=== PATIENT | male | born 1940 | race Two or more races ===

== ENCOUNTER 2021-06-06 10:42 | Inpatient (IN) | payer OTHER ==
[2021-06-06] VITALS (7 sets, daily range): BP systolic 118–136; BP diastolic 51–74
[~2021-06-06] VITALS: Ht 185.4 cm; Wt 95.2 kg
[2021-06-06] MEDS ORDERED: MAGNESIUM SULFATE 1GM/100ML 100 ML IV ONE (11:00)
[2021-06-06] MEDS ORDERED: IPRATROPIUM BROM 0.5 MG/2.5ML INH SOL NEB ONE (11:00)
[2021-06-06] MEDS ORDERED: ALBUTEROL SULF 2.5 MG/0.5ML(0.5%) NEB SOLN NEB ONE (11:00)
[2021-06-06] MEDS ORDERED: methylPREDNISolone SOD SUCC 125 MG/2 ML VL IV ONE (11:00)
[2021-06-06] MEDS ORDERED: AMIODARONE HCL 150 MG in D5W 5% 100 ML IV ONE (11:30)
[2021-06-06 11:44] LABS: Hematocrit 41.3 % (41.0-53.0); Hemoglobin 14.3 g/dL (13.5-17.5); Mean Corpuscular Hemoglobin 30.6 pg (28.0-32.0); Mean Corpuscular Hgb Conc. 34.6 g/dL (32.0-36.0); Mean Corpuscular Volume 88.4 fL (80.0-100.0); Red Blood Cells 4.67 10^6/uL (4.5-5.90); Red Cell Distribution Width 15.6 % (11.8-14.3); White Blood Cell 9.9 10^3/uL (4.4-10.8)
[2021-06-06] MEDS ORDERED: AMIODARONE 450mg/250ml AE 250 ML IV SCH (11:45)
[2021-06-06 11:56] LABS: Albumin 2.1 g/dL (3.4-5.0); Anion Gap 10 (5-15); Blood Urea Nitrogen 27 mg/dL (7-18); Calcium 8.4 mg/dL (8.5-10.1); Carbon Dioxide 22 mmol/L (21-32); Chloride 105 mmol/L (98-107); Glucose 114 mg/dL (74-106); Magnesium 2.2 mg/dL (1.6-2.6); Potassium 3.4 mmol/L (3.5-5.1); Sodium 137 mmol/L (136-145)
[2021-06-06 11:58] LABS: Lactic Acid w/Reflex 2.5 mmol/L (0.4-2.0)
[2021-06-06 11:59] LABS: Basophils % (manual) 0 (0.0-2.0); Blast Cells 0; Eosinophils % (manual) 0 (0-7); Metamyelocytes % 0; Myelocytes % 0; Promyelocytes % 0; Reactive Lymphocytes 0
[2021-06-06 12:06] LABS: Alanine Aminotransferase 56 U/L (16-61); Alkaline Phosphatase 127 U/L (45-117); Aspartate Aminotransferase 92 U/L (15-37); Bilirubin, Total 0.8 mg/dL (0.2-1.0); GFR African American 58 mL/min; GFR Non-African American 48 mL/min; Total Protein 6.7 g/dL (6.4-8.2)
[2021-06-06 13:00] LABS: Band Neutrophils % (manual) 12; Lymphocytes % (manual) 13 (10.0-50.0); Monocytes % (manual) 3 (0-12)
[2021-06-06] MEDS ORDERED: REMDESIVIR PER PHARMACY 0 ML IV SCH (14:00)
[2021-06-06] MEDS ORDERED: DIGOXIN 0.25 MG TAB PO ONE (14:45)
[2021-06-06] MEDS ORDERED: DIGOXIN (250MCG/ML) 2 ML AMPULE ONE (14:57)
[2021-06-06] MEDS ORDERED: AZITHROMYCIN 500MG/ 250ML 250 ML IV ONE (15:00)
[2021-06-06] MEDS ORDERED: cefTRIAXone 1GM/50ML D5W 50 ML IV ONE (15:00)
[2021-06-06] MEDS ORDERED: REMDESIVIR 200 MG in NS 210ml LOADING DOSE ADULT IV ONE (15:00)
[2021-06-06] MEDS ORDERED: DIGOXIN (250MCG/ML) 2 ML AMPULE IV ONE ×2 (15:00→15:30)
[2021-06-06] MEDS ORDERED: MORPHINE SULFATE INJECTION 2 MG/ML SYRG IV PRN (15:15)
[2021-06-06] MEDS ORDERED: NITROGLYCERIN 0.4 MG SL TAB SL PRN (15:15)
[2021-06-06] MEDS ORDERED: ACETAMINOPHEN 500 MG TAB PO PRN (15:45)
[2021-06-06] MEDS ORDERED: LACTULOSE 20Gm/30ML SOLN PO PRN (15:45)
[2021-06-06] MEDS ORDERED: ENOXAPARIN SOD 80 MG/0.8ML SYRINGE SC ONE (15:45)
[2021-06-06] MEDS ORDERED: ONDANSETRON HCL 4 MG/2 ML VIAL IV PRN (15:45)
[2021-06-06] MEDS ORDERED: diphenhdrAMINE HCL 50 MG/1 ML VL IV PRN (15:45)
[2021-06-06] MEDS ORDERED: AMIODARONE 450mg/250ml AE 250 ML IV ONE (20:52)
[2021-06-06] MEDS: ATORVASTATIN 20 MG TAB PO SCH (21:37)
[2021-06-06] MEDS: FLORASTOR (S. BOULARDII) 250 MG CAP PO SCH (21:37)
[2021-06-06] MEDS: ENOXAPARIN SOD 80 MG/0.8ML SYRINGE SC SCH (21:37)
[2021-06-06] MEDS ORDERED: CARVEDILOL 3.125 MG TAB PO SCH (22:00)
[2021-06-07 07:56] LABS: Basophils # (auto) 0 10 ^3/uL (0-0.2); Basophils % (auto) 0.1 % (0.0-2.0); Eosinophils # (auto) 0 10 ^3/uL (0-0.8); Hematocrit 37.5 % (41.0-53.0); Lymphocytes # (auto) 0.5 10 ^3/uL (0.4-5.4); Lymphocytes % (auto) 5.9 % (10.0-50.0); Mean Corpuscular Hemoglobin 30.6 pg (28.0-32.0); Mean Corpuscular Hgb Conc. 34.7 g/dL (32.0-36.0); Monocytes # (auto) 0.3 10 ^3/uL (0-1.3); Monocytes % (auto) 3.3 % (0.0-12.0); Neutrophils # (auto) 7.7 10 ^3/uL (1.6-8.6); Neutrophils % (auto) 90.7 % (37.0-80.0); Nucleated Red Blood Cells % 0.1 %; Red Blood Cells 4.26 10^6/uL (4.5-5.90); Red Cell Distribution Width 15.4 % (11.8-14.3); White Blood Cell 8.5 10^3/uL (4.4-10.8)
[2021-06-07 08:20] LABS: Albumin 1.8 g/dL (3.4-5.0); BUN/Creatinine Ratio 22.2; Potassium 3.4 mmol/L (3.5-5.1)
[2021-06-07 08:24] LABS: Bilirubin, Total 0.6 mg/dL (0.2-1.0); Total Protein 6.2 g/dL (6.4-8.2)
[2021-06-07] MEDS ORDERED: DIGOXIN (250MCG/ML) 2 ML AMPULE IV ONE (08:45)
[2021-06-07] MEDS ORDERED: POTASSIUM EFFERVESENT TAB 25 MEQ PO ONE (08:45)
[2021-06-07] MEDS: cefTRIAXone 1GM/50ML D5W 50 ML IV SCH (09:22)
[2021-06-07 09:26] LABS: Cholesterol 81 mg/dL (< 200); HDL Cholesterol 33 mg/dL (40-59); LDL Cholesterol 41 mg/dL (< 100); Triglycerides 82 mg/dL (< 150)
[2021-06-07] MEDS: FUROSEMIDE 40 MG/4 ML VIAL IV SCH (09:34)
[2021-06-07] MEDS: ASPirin 81 mg TAB PO SCH (09:35)
[2021-06-07] MEDS: ZINC SULFATE 220mg CAP or TAB PO SCH (09:35)
[2021-06-07] MEDS: FLORASTOR (S. BOULARDII) 250 MG CAP PO SCH ×2 (09:36→20:42)
[2021-06-07] MEDS: IVERMECTIN 3 MG TAB PO SCH (09:37)
[2021-06-07] MEDS: POTASSIUM CHL 20 Meq TABLET PO SCH (09:37)
[2021-06-07] MEDS: ENALAPRIL MALEATE 2.5 MG TAB PO SCH (09:38)
[2021-06-07] MEDS: ASCORBIC ACID 1,000 MG TAB PO SCH (09:39)
[2021-06-07] MEDS: CHOLECALCIFEROL (VITD3) 2,000 UNIT CAP/TAB PO SCH (09:39)
[2021-06-07] MEDS: ENOXAPARIN SOD 80 MG/0.8ML SYRINGE SC SCH ×2 (09:39→20:44)
[2021-06-07] MEDS: DexAMETHasone SOD PHOS 10MG/1ML VIAL INJ IV SCH (09:41)
[2021-06-07] MEDS ORDERED: AZITHROMYCIN 500MG/ 250ML 250 ML IV SCH (10:00)
[2021-06-07] MEDS ORDERED: METOPROLOL TARTRATE 25 MG TAB PO SCH (10:00)
[2021-06-07] MEDS ORDERED: ENOXAPARIN SOD 40 MG/0.4 ML SYRINGE SC SCH (10:00)
[2021-06-07] MEDS: BUDESONIDE (INHALATION) 180 MCG IH IN SCH ×2 (11:30→20:19)
[2021-06-07] MEDS: ALBUTEROL SULF HFA 90MCG INH 200DOSE IN PRN ×2 (11:30→20:19)
[2021-06-07] MEDS ORDERED: ATOR-47 PO (11:40)
[2021-06-07] MEDS ORDERED: ASPI81CH59 PO (11:40)
[2021-06-07] MEDS ORDERED: POTA10TA51 PO (11:40)
[2021-06-07] MEDS ORDERED: MONT10TA42 PO (11:40)
[2021-06-07] MEDS ORDERED: FURO40TA4 PO (11:40)
[2021-06-07] MEDS ORDERED: ALBUAER3 IN (11:40)
[2021-06-07] MEDS ORDERED: LORA-622 PO (11:40)
[2021-06-07] MEDS ORDERED: FLUT50SP (11:46)
[2021-06-07] MEDS ORDERED: APIX5TAB PO (11:46)
[2021-06-07] MEDS ORDERED: METO-159 PO (11:46)
[2021-06-07] MEDS ORDERED: TAMS0.4C36 PO (11:46)
[2021-06-07] MEDS ORDERED: FINA5TAB4 PO (11:46)
[2021-06-07] MEDS ORDERED: FLUT500M2 IN (11:46)
[2021-06-07] MEDS ORDERED: ALLO300T2 PO (11:46)
[2021-06-07] MEDS ORDERED: QUET25TA46 PO (11:56)
[2021-06-07] MEDS: AMIODARONE 450mg/250ml AE 250 ML IV SCH (13:09)
[2021-06-07] MEDS ORDERED: METOPROLOL TARTRATE 25 MG TAB PO ONE (13:15)
[2021-06-07] MEDS: REMDESIVIR 100mg 100 MG in SODIUM CHL 0.9% 230 ML IV SCH (15:10)
[2021-06-07 18:40] LABS: Urine Amorphous Crystal FEW /hpf (None Seen); Urine Bacteria NONE SEEN /hpf (None Seen); Urine Blood 3+ /uL (Negative); Urine Hyaline Cast MOD /lpf (0 - 2); Urine Mucus FEW (None Seen); Urine Specific Gravity 1.022 (1.001-1.035); Urine WBC 40 /hpf (0 - 3)
[2021-06-07] MEDS: LINEZOLID 600MG/300ML 300 ML IV SCH (20:42)
[2021-06-07] MEDS: ATORVASTATIN 20 MG TAB PO SCH (20:43)
[2021-06-07] MEDS: METOPROLOL TARTRATE 25 MG TAB PO SCH (20:43)
[2021-06-08] MEDS: AMIODARONE 450mg/250ml AE 250 ML IV SCH (03:49)
[2021-06-08] MEDS: ALBUTEROL SULF HFA 90MCG INH 200DOSE IN PRN (06:07)
[2021-06-08 06:57] LABS: Potassium 3.9 mmol/L (3.5-5.1)
[2021-06-08 07:24] LABS: Albumin 1.8 g/dL (3.4-5.0); Bilirubin, Total 0.8 mg/dL (0.2-1.0); Calcium 8.4 mg/dL (8.5-10.1); Total Protein 6.5 g/dL (6.4-8.2)
[2021-06-08] MEDS: cefTRIAXone 1GM/50ML D5W 50 ML IV SCH (09:48)
[2021-06-08] MEDS: ASPirin 81 mg TAB PO SCH (10:06)
[2021-06-08] MEDS: DexAMETHasone SOD PHOS 10MG/1ML VIAL INJ IV SCH (10:06)
[2021-06-08] MEDS: POTASSIUM CHL 20 Meq TABLET PO SCH (10:07)
[2021-06-08] MEDS: FLORASTOR (S. BOULARDII) 250 MG CAP PO SCH ×2 (10:07→22:16)
[2021-06-08] MEDS: IVERMECTIN 3 MG TAB PO SCH (10:08)
[2021-06-08] MEDS: ASCORBIC ACID 1,000 MG TAB PO SCH (10:08)
[2021-06-08] MEDS: CHOLECALCIFEROL (VITD3) 2,000 UNIT CAP/TAB PO SCH (10:09)
[2021-06-08] MEDS: ENOXAPARIN SOD 80 MG/0.8ML SYRINGE SC SCH (10:09)
[2021-06-08] MEDS: DIGOXIN 0.125 MG TAB PO SCH (10:15)
[2021-06-08] MEDS: FUROSEMIDE 40 MG/4 ML VIAL IV SCH (10:15)
[2021-06-08] MEDS: ZINC SULFATE 220mg CAP or TAB PO SCH (10:15)
[2021-06-08] MEDS: ENALAPRIL MALEATE 2.5 MG TAB PO SCH (10:16)
[2021-06-08] MEDS: METOPROLOL TARTRATE 25 MG TAB PO SCH ×3 (10:16→23:16)
[2021-06-08] MEDS: LINEZOLID 600MG/300ML 300 ML IV SCH ×2 (10:37→22:09)
[2021-06-08 11:42] LABS: Hematocrit 37.8 % (41.0-53.0); Hemoglobin 13.1 g/dL (13.5-17.5)
[2021-06-08] MEDS ORDERED: MORPHINE SULFATE INJECTION 2 MG/ML SYRG IV PRN (14:15)
[2021-06-08] MEDS ORDERED: NITROGLYCERIN 0.4 MG SL TAB SL PRN (14:15)
[2021-06-08] MEDS: REMDESIVIR 100mg 100 MG in SODIUM CHL 0.9% 230 ML IV SCH (15:00)
[2021-06-08 19:00] LABS: Hematocrit 38.4 % (41.0-53.0); Hemoglobin 13.3 g/dL (13.5-17.5)
[2021-06-08] MEDS: HYDROCORTISONE ACET 25 MG RECTAL SUPP PR SCH ×2 (22:00→22:36)
[2021-06-08] MEDS ORDERED: ENOXAPARIN SOD 100 MG/1 ML SYRINGE SC SCH (22:00)
[2021-06-08] MEDS: ATORVASTATIN 20 MG TAB PO SCH (22:16)
[2021-06-09 02:13] VITALS: BP 123/85
[2021-06-09 02:15] LABS: Hematocrit 37.8 % (41.0-53.0); Hemoglobin 13.2 g/dL (13.5-17.5)
[2021-06-09] MEDS: ALBUTEROL SULF HFA 90MCG INH 200DOSE IN PRN ×3 (02:49→19:16)
[2021-06-09] MEDS: BUDESONIDE (INHALATION) 180 MCG IH IN SCH (02:49)
[2021-06-09 05:00] VITALS: BP 134/88
[2021-06-09 05:25] LABS: Calcium 8.2 mg/dL (8.5-10.1)
[2021-06-09 05:28] LABS: BUN/Creatinine Ratio 28.3; Bilirubin, Total 0.9 mg/dL (0.2-1.0); Total Protein 6.7 g/dL (6.4-8.2)
[2021-06-09 09:20] VITALS: BP 127/85
[2021-06-09] MEDS: HYDROCORTISONE ACET 25 MG RECTAL SUPP PR SCH ×2 (10:00→21:58)
[2021-06-09] MEDS: ZINC SULFATE 220mg CAP or TAB PO SCH (10:34)
[2021-06-09] MEDS: cefTRIAXone 1GM/50ML D5W 50 ML IV SCH (10:34)
[2021-06-09] MEDS: FLORASTOR (S. BOULARDII) 250 MG CAP PO SCH ×2 (10:34→21:56)
[2021-06-09] MEDS: FUROSEMIDE 40 MG/4 ML VIAL IV SCH (10:34)
[2021-06-09] MEDS: DexAMETHasone SOD PHOS 10MG/1ML VIAL INJ IV SCH (10:34)
[2021-06-09] MEDS: IVERMECTIN 3 MG TAB PO SCH (10:35)
[2021-06-09] MEDS: ASCORBIC ACID 1,000 MG TAB PO SCH (10:35)
[2021-06-09] MEDS: DIGOXIN 0.125 MG TAB PO SCH (10:35)
[2021-06-09] MEDS: METOPROLOL TARTRATE 25 MG TAB PO SCH ×2 (10:35→21:58)
[2021-06-09] MEDS: CHOLECALCIFEROL (VITD3) 2,000 UNIT CAP/TAB PO SCH (10:36)
[2021-06-09] MEDS: LINEZOLID 600MG/300ML 300 ML IV SCH ×2 (11:29→21:56)
[2021-06-09 12:44] VITALS: BP 158/80
[2021-06-09] MEDS: REMDESIVIR 100mg 100 MG in SODIUM CHL 0.9% 230 ML IV SCH (16:31)
[2021-06-09 17:19] VITALS: BP 130/73
[2021-06-09] MEDS: ATORVASTATIN 20 MG TAB PO SCH (21:56)
[2021-06-09] MEDS: traMADol HCL 50 MG TAB PO PRN (21:57)
[2021-06-09 22:00] VITALS: BP 150/57
[2021-06-10 05:00] VITALS: BP 157/82
[2021-06-10 05:48] LABS: Albumin 1.9 g/dL (3.4-5.0); Calcium 8.1 mg/dL (8.5-10.1); Potassium 3.9 mmol/L (3.5-5.1)
[2021-06-10 05:54] LABS: BUN/Creatinine Ratio 29.3; Bilirubin, Total 0.8 mg/dL (0.2-1.0); Total Protein 6.2 g/dL (6.4-8.2)
[2021-06-10 05:59] LABS: Basophils # (auto) 0 10 ^3/uL (0-0.2); Basophils % (auto) 0.1 % (0.0-2.0); Eosinophils # (auto) 0 10 ^3/uL (0-0.8); Hematocrit 38.1 % (41.0-53.0); Hemoglobin 13.5 g/dL (13.5-17.5); Lymphocytes # (auto) 0.4 10 ^3/uL (0.4-5.4); Mean Corpuscular Hemoglobin 31.1 pg (28.0-32.0); Mean Corpuscular Hgb Conc. 35.6 g/dL (32.0-36.0); Mean Corpuscular Volume 87.4 fL (80.0-100.0); Monocytes # (auto) 0.5 10 ^3/uL (0-1.3); Monocytes % (auto) 4.8 % (0.0-12.0); Neutrophils # (auto) 9.1 10 ^3/uL (1.6-8.6); Neutrophils % (auto) 91.1 % (37.0-80.0); Nucleated Red Blood Cells % 0.1 %; Red Blood Cells 4.36 10^6/uL (4.5-5.90); Red Cell Distribution Width 15.3 % (11.8-14.3)
[2021-06-10 08:26] VITALS: BP 126/89
[2021-06-10] MEDS: ALBUTEROL SULF HFA 90MCG INH 200DOSE IN PRN ×2 (08:57→21:29)
[2021-06-10] MEDS: HYDROCORTISONE ACET 25 MG RECTAL SUPP PR SCH ×2 (10:00→20:45)
[2021-06-10 10:10] LABS: Hepatitis B Surface Antibody Negative
[2021-06-10] MEDS: DexAMETHasone SOD PHOS 10MG/1ML VIAL INJ IV SCH (10:20)
[2021-06-10] MEDS: ZINC SULFATE 220mg CAP or TAB PO SCH (10:20)
[2021-06-10] MEDS: FLORASTOR (S. BOULARDII) 250 MG CAP PO SCH ×2 (10:20→20:44)
[2021-06-10] MEDS: cefTRIAXone 1GM/50ML D5W 50 ML IV SCH (10:20)
[2021-06-10] MEDS: IVERMECTIN 3 MG TAB PO SCH (10:21)
[2021-06-10] MEDS: METOPROLOL TARTRATE 50 MG TAB PO SCH ×2 (10:21→20:45)
[2021-06-10] MEDS: ASCORBIC ACID 1,000 MG TAB PO SCH (10:21)
[2021-06-10] MEDS: CHOLECALCIFEROL (VITD3) 2,000 UNIT CAP/TAB PO SCH (10:21)
[2021-06-10] MEDS: DIGOXIN 0.125 MG TAB PO SCH (10:21)
[2021-06-10 10:45] LABS: Hepatitis A Total Antibody Negative
[2021-06-10] MEDS: LINEZOLID 600MG/300ML 300 ML IV SCH ×2 (11:11→20:44)
[2021-06-10 12:29] VITALS: BP 139/68
[2021-06-10 13:08] LABS: Hepatitis B Surface Antigen Negative (Negative)
[2021-06-10 13:09] LABS: Hepatitis B Core Total AB Negative; Hepatitis C Antibody Negative (Negative)
[2021-06-10] MEDS: REMDESIVIR 100mg 100 MG in SODIUM CHL 0.9% 230 ML IV SCH (15:42)
[2021-06-10 16:55] VITALS: BP 141/77
[2021-06-10] MEDS: ATORVASTATIN 20 MG TAB PO SCH (20:45)
[2021-06-10 22:00] VITALS: BP 130/73
[2021-06-10] MEDS: ENOXAPARIN SOD 100 MG/1 ML SYRINGE SC SCH (23:21)
[2021-06-11 05:00] VITALS: BP 151/75
[2021-06-11] MEDS: ALBUTEROL SULF HFA 90MCG INH 200DOSE IN PRN ×2 (06:09→22:14)
[2021-06-11] MEDS: traMADol HCL 50 MG TAB PO PRN (08:10)
[2021-06-11] MEDS: cefTRIAXone 1GM/50ML D5W 50 ML IV SCH (09:06)
[2021-06-11 09:12] VITALS: BP 146/68
[2021-06-11 10:23] LABS: Hematocrit 40.8 % (41.0-53.0)
[2021-06-11] MEDS: DexAMETHasone SOD PHOS 10MG/1ML VIAL INJ IV SCH (10:36)
[2021-06-11] MEDS: LINEZOLID 600MG/300ML 300 ML IV SCH (10:36)
[2021-06-11] MEDS: ASCORBIC ACID 1,000 MG TAB PO SCH (10:37)
[2021-06-11] MEDS: CHOLECALCIFEROL (VITD3) 2,000 UNIT CAP/TAB PO SCH (10:37)
[2021-06-11] MEDS: ZINC SULFATE 220mg CAP or TAB PO SCH (10:37)
[2021-06-11] MEDS: FLORASTOR (S. BOULARDII) 250 MG CAP PO SCH (10:37)
[2021-06-11] MEDS: IVERMECTIN 3 MG TAB PO SCH (10:37)
[2021-06-11] MEDS: METOPROLOL TARTRATE 50 MG TAB PO SCH ×2 (10:37→22:39)
[2021-06-11] MEDS: ENOXAPARIN SOD 100 MG/1 ML SYRINGE SC SCH (10:38)
[2021-06-11] MEDS: HYDROCORTISONE ACET 25 MG RECTAL SUPP PR SCH ×2 (10:38→22:30)
[2021-06-11 10:44] LABS: Calcium 8.2 mg/dL (8.5-10.1); Potassium 3.3 mmol/L (3.5-5.1)
[2021-06-11 10:46] LABS: BUN/Creatinine Ratio 27.8
[2021-06-11 13:00] VITALS: BP 158/98
[2021-06-11] MEDS ORDERED: DIGOXIN 0.125 MG TAB PO ONE (15:00)
[2021-06-11 17:00] VITALS: BP 151/86
[2021-06-11 22:00] VITALS: BP_SYST 140; BP_SYST 151; BP_DIAS 76; BP_DIAS 87
[2021-06-11] MEDS: ceFAZolin 1GM/50ML 50 ML IV SCH (22:29)
[2021-06-11] MEDS: APIXABAN 2.5 MG TAB PO SCH (22:30)
[2021-06-12] MEDS: traMADol HCL 50 MG TAB PO PRN ×3 (04:02→20:39)
[2021-06-12 05:00] VITALS: BP 148/55
[2021-06-12] MEDS: ceFAZolin 1GM/50ML 50 ML IV SCH ×3 (05:23→22:19)
[2021-06-12] MEDS: ALBUTEROL SULF HFA 90MCG INH 200DOSE IN PRN (06:17)
[2021-06-12 08:00] VITALS: BP 149/85
[2021-06-12 09:00] VITALS: BP 149/85
[2021-06-12] MEDS: ASCORBIC ACID 1,000 MG TAB PO SCH (10:00)
[2021-06-12] MEDS: HYDROCORTISONE ACET 25 MG RECTAL SUPP PR SCH ×2 (10:00→22:00)
[2021-06-12] MEDS: DexAMETHasone SOD PHOS 10MG/1ML VIAL INJ IV SCH (10:19)
[2021-06-12] MEDS: APIXABAN 2.5 MG TAB PO SCH ×2 (10:21→20:39)
[2021-06-12] MEDS: ZINC SULFATE 220mg CAP or TAB PO SCH (10:21)
[2021-06-12] MEDS: DIGOXIN 0.125 MG TAB PO SCH (10:22)
[2021-06-12] MEDS: CHOLECALCIFEROL (VITD3) 2,000 UNIT CAP/TAB PO SCH (10:22)
[2021-06-12] MEDS: METOPROLOL TARTRATE 50 MG TAB PO SCH ×2 (10:23→20:40)
[2021-06-12 13:00] VITALS: BP 137/83
[2021-06-12 22:00] VITALS: BP 150/67
[2021-06-12] MEDS: HALOPERIDOL LACTATE 5 MG/ML INJ VIAL IM PRN (22:20)
[2021-06-13 05:00] VITALS: BP 125/66
[2021-06-13] MEDS: ALBUTEROL SULF HFA 90MCG INH 200DOSE IN PRN (06:42)
[2021-06-13] MEDS: ceFAZolin 1GM/50ML 50 ML IV SCH ×3 (06:47→21:40)
[2021-06-13] MEDS: traMADol HCL 50 MG TAB PO PRN ×3 (07:51→21:41)
[2021-06-13 08:31] VITALS: BP 138/72
[2021-06-13] MEDS: DexAMETHasone SOD PHOS 10MG/1ML VIAL INJ IV SCH (10:04)
[2021-06-13] MEDS: CHOLECALCIFEROL (VITD3) 2,000 UNIT CAP/TAB PO SCH (10:05)
[2021-06-13] MEDS: APIXABAN 2.5 MG TAB PO SCH ×2 (10:05→21:40)
[2021-06-13] MEDS: ZINC SULFATE 220mg CAP or TAB PO SCH (10:05)
[2021-06-13] MEDS: DIGOXIN 0.125 MG TAB PO SCH (10:05)
[2021-06-13] MEDS: ASCORBIC ACID 1,000 MG TAB PO SCH (10:06)
[2021-06-13] MEDS: METOPROLOL TARTRATE 50 MG TAB PO SCH ×2 (10:07→21:58)
[2021-06-13] MEDS: HYDROCORTISONE ACET 25 MG RECTAL SUPP PR SCH ×2 (11:11→21:40)
[2021-06-13 11:51] LABS: Basophils # (auto) 0 10 ^3/uL (0-0.2); Basophils % (auto) 0.2 % (0.0-2.0); Eosinophils # (auto) 0 10 ^3/uL (0-0.8); Eosinophils % (auto) 0.3 % (0.0-7.0); Hemoglobin 13.8 g/dL (13.5-17.5); Lymphocytes # (auto) 0.3 10 ^3/uL (0.4-5.4); Lymphocytes % (auto) 2.3 % (10.0-50.0); Mean Corpuscular Hemoglobin 29.3 pg (28.0-32.0); Mean Corpuscular Hgb Conc. 33.6 g/dL (32.0-36.0); Mean Corpuscular Volume 87.3 fL (80.0-100.0); Monocytes # (auto) 0.5 10 ^3/uL (0-1.3); Monocytes % (auto) 3.5 % (0.0-12.0); Neutrophils # (auto) 12.8 10 ^3/uL (1.6-8.6); Neutrophils % (auto) 93.7 % (37.0-80.0); Nucleated Red Blood Cells % 0.1 %; Red Cell Distribution Width 15.2 % (11.8-14.3); White Blood Cell 13.6 10^3/uL (4.4-10.8)
[2021-06-13 12:03] LABS: Albumin 2.1 g/dL (3.4-5.0); Potassium 3.6 mmol/L (3.5-5.1)
[2021-06-13 12:26] LABS: BUN/Creatinine Ratio 26.1; Total Protein 6.4 g/dL (6.4-8.2)
[2021-06-13 13:00] VITALS: BP 122/43
[2021-06-13 13:05] VITALS: BP 122/43
[2021-06-13 17:01] VITALS: BP 160/76
[2021-06-14 05:00] VITALS: BP 148/80
[2021-06-14] MEDS: traMADol HCL 50 MG TAB PO PRN ×3 (05:07→20:55)
[2021-06-14] MEDS: ceFAZolin 1GM/50ML 50 ML IV SCH ×3 (05:17→20:54)
[2021-06-14 05:57] LABS: Basophils # (auto) 0 10 ^3/uL (0-0.2); Basophils % (auto) 0.1 % (0.0-2.0); Eosinophils # (auto) 0 10 ^3/uL (0-0.8); Eosinophils % (auto) 0.3 % (0.0-7.0); Hemoglobin 13.5 g/dL (13.5-17.5); Lymphocytes # (auto) 0.6 10 ^3/uL (0.4-5.4); Lymphocytes % (auto) 6.9 % (10.0-50.0); Mean Corpuscular Hemoglobin 31.1 pg (28.0-32.0); Mean Corpuscular Hgb Conc. 35.4 g/dL (32.0-36.0); Mean Corpuscular Volume 87.9 fL (80.0-100.0); Monocytes # (auto) 0.5 10 ^3/uL (0-1.3); Monocytes % (auto) 5.8 % (0.0-12.0); Neutrophils # (auto) 7.9 10 ^3/uL (1.6-8.6); Neutrophils % (auto) 86.9 % (37.0-80.0); Red Blood Cells 4.32 10^6/uL (4.5-5.90); Red Cell Distribution Width 15.3 % (11.8-14.3); White Blood Cell 9.1 10^3/uL (4.4-10.8)
[2021-06-14 06:34] LABS: Calcium 8.2 mg/dL (8.5-10.1); Magnesium 2.8 mg/dL (1.6-2.6); Potassium 3.8 mmol/L (3.5-5.1)
[2021-06-14 06:36] LABS: BUN/Creatinine Ratio 29.1
[2021-06-14 06:39] LABS: Total Protein 6.2 g/dL (6.4-8.2)
[2021-06-14] MEDS: HALOPERIDOL LACTATE 5 MG/ML INJ VIAL IM PRN (06:48)
[2021-06-14 09:06] VITALS: BP 167/77
[2021-06-14] MEDS: APIXABAN 2.5 MG TAB PO SCH ×2 (09:36→20:55)
[2021-06-14] MEDS: DIGOXIN 0.125 MG TAB PO SCH (09:36)
[2021-06-14] MEDS: ZINC SULFATE 220mg CAP or TAB PO SCH (09:36)
[2021-06-14] MEDS: DexAMETHasone SOD PHOS 10MG/1ML VIAL INJ IV SCH (09:36)
[2021-06-14] MEDS: CHOLECALCIFEROL (VITD3) 2,000 UNIT CAP/TAB PO SCH (09:37)
[2021-06-14] MEDS: ASCORBIC ACID 1,000 MG TAB PO SCH (09:37)
[2021-06-14] MEDS: METOPROLOL TARTRATE 50 MG TAB PO SCH ×3 (09:37→21:01)
[2021-06-14] MEDS: HYDROCORTISONE ACET 25 MG RECTAL SUPP PR SCH ×2 (09:38→20:55)
[2021-06-14] MEDS ORDERED: FUROSEMIDE 40 MG/4 ML VIAL IV ONE (14:15)
[2021-06-14 17:00] VITALS: BP 157/103
[2021-06-14 18:30] VITALS: BP 154/98
[2021-06-14] MEDS: FUROSEMIDE 40 MG/4 ML VIAL IV SCH (18:30)
[2021-06-14 18:35] LABS: Basophils # (auto) 0 10 ^3/uL (0-0.2); Eosinophils # (auto) 0 10 ^3/uL (0-0.8); Eosinophils % (auto) 0.1 % (0.0-7.0); Hematocrit 40.2 % (41.0-53.0); Hemoglobin 13.6 g/dL (13.5-17.5); Lymphocytes # (auto) 0.4 10 ^3/uL (0.4-5.4); Lymphocytes % (auto) 3.7 % (10.0-50.0); Mean Corpuscular Hemoglobin 29.6 pg (28.0-32.0); Mean Corpuscular Hgb Conc. 33.8 g/dL (32.0-36.0); Mean Corpuscular Volume 87.5 fL (80.0-100.0); Monocytes # (auto) 0.5 10 ^3/uL (0-1.3); Monocytes % (auto) 4.5 % (0.0-12.0); Neutrophils # (auto) 9.4 10 ^3/uL (1.6-8.6); Neutrophils % (auto) 91.7 % (37.0-80.0); Red Blood Cells 4.59 10^6/uL (4.5-5.90); Red Cell Distribution Width 15.4 % (11.8-14.3); White Blood Cell 10.2 10^3/uL (4.4-10.8)
[2021-06-14] MEDS ORDERED: hydrALAZINE HCL 20 MG/ML VL IV PRN (19:15)
[2021-06-14] MEDS: ALBUTEROL SULF HFA 90MCG INH 200DOSE IN PRN (20:09)
[2021-06-14 22:00] VITALS: BP_SYST 131; BP_SYST 137; BP_DIAS 57; BP_DIAS 80
[2021-06-15] MEDS: traMADol HCL 50 MG TAB PO PRN (03:01)
[2021-06-15] MEDS: HALOPERIDOL LACTATE 5 MG/ML INJ VIAL IM PRN (04:01)
[2021-06-15] MEDS ORDERED: LORazepam 2MG/ML-1ML VIAL IV ONE (04:45)
[2021-06-15] MEDS: FUROSEMIDE 40 MG/4 ML VIAL IV SCH ×2 (06:00→18:00)
[2021-06-15] MEDS: ceFAZolin 1GM/50ML 50 ML IV SCH ×3 (06:00→22:09)
[2021-06-15] MEDS: ALBUTEROL SULF HFA 90MCG INH 200DOSE IN PRN ×2 (06:15→21:20)
[2021-06-15 09:00] VITALS: BP 143/76
[2021-06-15] MEDS: DexAMETHasone SOD PHOS 10MG/1ML VIAL INJ IV SCH (09:41)
[2021-06-15] MEDS: ZINC SULFATE 220mg CAP or TAB PO SCH (09:42)
[2021-06-15] MEDS: ASCORBIC ACID 1,000 MG TAB PO SCH (09:42)
[2021-06-15] MEDS: APIXABAN 2.5 MG TAB PO SCH ×2 (09:42→22:09)
[2021-06-15] MEDS: CHOLECALCIFEROL (VITD3) 2,000 UNIT CAP/TAB PO SCH (09:42)
[2021-06-15] MEDS: METOPROLOL TARTRATE 50 MG TAB PO SCH ×2 (09:44→22:21)
[2021-06-15] MEDS: DIGOXIN 0.125 MG TAB PO SCH (09:45)
[2021-06-15] MEDS: HYDROCORTISONE ACET 25 MG RECTAL SUPP PR SCH ×2 (09:52→22:09)
[2021-06-15] MEDS ORDERED: HALOPERIDOL LACTATE 5 MG/ML INJ VIAL IM ONE (11:00)
[2021-06-15] MEDS ORDERED: HALOPERIDOL LACTATE 5 MG/ML INJ VIAL IM PRN (11:15)
[2021-06-15 12:58] VITALS: BP 143/84
[2021-06-15 22:00] VITALS: BP 137/98
[2021-06-16 05:00] VITALS: BP 151/81
[2021-06-16] MEDS: ceFAZolin 1GM/50ML 50 ML IV SCH (06:03)
[2021-06-16] MEDS: FUROSEMIDE 40 MG/4 ML VIAL IV SCH (06:03)
[2021-06-16] MEDS: ALBUTEROL SULF HFA 90MCG INH 200DOSE IN PRN (06:17)
[2021-06-16] MEDS: ALBUTEROL SULF HFA 90MCG INH 200DOSE IN SCH ×2 (07:55→21:29)
[2021-06-16] MEDS ORDERED: DexAMETHasone SOD PHOS 10MG/1ML VIAL INJ IV SCH (10:00)
[2021-06-16] MEDS ORDERED: HALOPERIDOL LACTATE 5 MG/ML INJ VIAL IM PRN (12:15)
[2021-06-16] MEDS: CHOLECALCIFEROL (VITD3) 2,000 UNIT CAP/TAB PO SCH (12:33)
[2021-06-16] MEDS: DIGOXIN 0.125 MG TAB PO SCH (12:33)
[2021-06-16] MEDS: APIXABAN 2.5 MG TAB PO SCH ×2 (12:33→20:57)
[2021-06-16] MEDS: HYDROCORTISONE ACET 25 MG RECTAL SUPP PR SCH ×2 (12:45→20:57)
[2021-06-16] MEDS: METOPROLOL TARTRATE 50 MG TAB PO SCH ×2 (12:45→20:57)
[2021-06-16] MEDS: FUROSEMIDE 20 MG/2 ML VIAL IV SCH (18:50)
[2021-06-16] MEDS: traMADol HCL 50 MG TAB PO PRN (20:57)
[2021-06-16] MEDS: BUDESONIDE (INHALATION) 0.5 MG/2 ML NEB NEB SCH (21:26)
[2021-06-16 22:00] VITALS: BP 129/75
[2021-06-17 05:00] VITALS: BP 144/87
[2021-06-17] MEDS: FUROSEMIDE 20 MG/2 ML VIAL IV SCH ×2 (06:13→18:18)
[2021-06-17] MEDS: traMADol HCL 50 MG TAB PO PRN (06:14)
[2021-06-17] MEDS: ALBUTEROL SULF HFA 90MCG INH 200DOSE IN SCH ×3 (08:00→19:22)
[2021-06-17 09:00] VITALS: BP 136/82
[2021-06-17] MEDS: BUDESONIDE (INHALATION) 0.5 MG/2 ML NEB NEB SCH ×2 (10:00→19:24)
[2021-06-17] MEDS: DIGOXIN 0.125 MG TAB PO SCH (10:05)
[2021-06-17] MEDS: APIXABAN 2.5 MG TAB PO SCH ×2 (10:05→22:13)
[2021-06-17] MEDS: levoFLOXacin 500 MG TAB PO SCH (10:06)
[2021-06-17] MEDS: HYDROCORTISONE ACET 25 MG RECTAL SUPP PR SCH (10:06)
[2021-06-17] MEDS: CHOLECALCIFEROL (VITD3) 2,000 UNIT CAP/TAB PO SCH (10:06)
[2021-06-17] MEDS: METOPROLOL TARTRATE 50 MG TAB PO SCH ×2 (10:06→22:14)
[2021-06-17 17:00] VITALS: BP 128/80
[2021-06-17 22:00] VITALS: BP 126/81
[2021-06-18 05:00] VITALS: BP 140/106
[2021-06-18 06:43] LABS: Potassium 3.5 mmol/L (3.5-5.1)
[2021-06-18] MEDS: ALBUTEROL SULF HFA 90MCG INH 200DOSE IN SCH ×2 (06:47→14:00)
[2021-06-18 06:51] LABS: Basophils # (auto) 0 10 ^3/uL (0-0.2); Basophils % (auto) 0.1 % (0.0-2.0); Eosinophils # (auto) 0.3 10 ^3/uL (0-0.8); Eosinophils % (auto) 1.9 % (0.0-7.0); Hematocrit 41.7 % (41.0-53.0); Hemoglobin 14.4 g/dL (13.5-17.5); Lymphocytes # (auto) 1.1 10 ^3/uL (0.4-5.4); Lymphocytes % (auto) 7.6 % (10.0-50.0); Mean Corpuscular Hemoglobin 30.6 pg (28.0-32.0); Mean Corpuscular Hgb Conc. 34.6 g/dL (32.0-36.0); Mean Corpuscular Volume 88.5 fL (80.0-100.0); Monocytes # (auto) 1.1 10 ^3/uL (0-1.3); Monocytes % (auto) 7.7 % (0.0-12.0); Neutrophils # (auto) 11.7 10 ^3/uL (1.6-8.6); Neutrophils % (auto) 82.7 % (37.0-80.0); Nucleated Red Blood Cells % 0.1 %; Red Blood Cells 4.72 10^6/uL (4.5-5.90); Red Cell Distribution Width 15.6 % (11.8-14.3); White Blood Cell 14.2 10^3/uL (4.4-10.8)
[2021-06-18] MEDS: FUROSEMIDE 20 MG/2 ML VIAL IV SCH ×2 (06:56→18:14)
[2021-06-18 07:01] LABS: Albumin 2.1 g/dL (3.4-5.0); Bilirubin, Total 1.4 mg/dL (0.2-1.0); CRP High Sensitivity 2.33 mg/dL (< 0.3); Calcium 8.4 mg/dL (8.5-10.1); Total Protein 6.6 g/dL (6.4-8.2)
[2021-06-18] MEDS: DexAMETHasone SOD PHOS 10MG/1ML VIAL INJ IV SCH (09:58)
[2021-06-18] MEDS: APIXABAN 2.5 MG TAB PO SCH ×2 (09:58→22:15)
[2021-06-18] MEDS: levoFLOXacin 500 MG TAB PO SCH (09:59)
[2021-06-18] MEDS: DIGOXIN 0.125 MG TAB PO SCH (09:59)
[2021-06-18] MEDS: BUDESONIDE (INHALATION) 0.5 MG/2 ML NEB NEB SCH (10:00)
[2021-06-18] MEDS: CHOLECALCIFEROL (VITD3) 2,000 UNIT CAP/TAB PO SCH (10:03)
[2021-06-18] MEDS: METOPROLOL TARTRATE 50 MG TAB PO SCH ×2 (10:03→22:15)
[2021-06-18] MEDS: traMADol HCL 50 MG TAB PO PRN (10:05)
[2021-06-18] MEDS: HYDROcodone-ACET 5/325MG TAB PO PRN (13:19)
[2021-06-18 22:00] VITALS: BP 132/79
[2021-06-19 05:00] VITALS: BP 144/78
[2021-06-19] MEDS: FUROSEMIDE 20 MG/2 ML VIAL IV SCH ×2 (05:59→18:10)
[2021-06-19] MEDS: BUDESONIDE (INHALATION) 0.5 MG/2 ML NEB NEB SCH ×3 (06:04→22:00)
[2021-06-19] MEDS: ALBUTEROL SULF HFA 90MCG INH 200DOSE IN SCH ×3 (06:04→22:00)
[2021-06-19 07:19] LABS: Potassium 3.9 mmol/L (3.5-5.1)
[2021-06-19 07:24] LABS: BUN/Creatinine Ratio 29.4; Calcium 8.7 mg/dL (8.5-10.1)
[2021-06-19 07:32] LABS: Basophils # (auto) 0 10 ^3/uL (0-0.2); Basophils % (auto) 0.1 % (0.0-2.0); Eosinophils # (auto) 0 10 ^3/uL (0-0.8); Hematocrit 44.9 % (41.0-53.0); Hemoglobin 15.2 g/dL (13.5-17.5); Lymphocytes # (auto) 0.7 10 ^3/uL (0.4-5.4); Lymphocytes % (auto) 5.8 % (10.0-50.0); Mean Corpuscular Hgb Conc. 33.8 g/dL (32.0-36.0); Mean Corpuscular Volume 88.9 fL (80.0-100.0); Monocytes # (auto) 0.9 10 ^3/uL (0-1.3); Monocytes % (auto) 7.4 % (0.0-12.0); Neutrophils # (auto) 10.8 10 ^3/uL (1.6-8.6); Neutrophils % (auto) 86.7 % (37.0-80.0); Nucleated Red Blood Cells % 0.2 %; Red Blood Cells 5.05 10^6/uL (4.5-5.90); Red Cell Distribution Width 15.5 % (11.8-14.3); White Blood Cell 12.5 10^3/uL (4.4-10.8)
[2021-06-19 07:46] LABS: INR 1.22 (0.9-1.15); Partial Thromboplastin Time 28.2 sec (23.6-33.0)
[2021-06-19 09:00] VITALS: BP 106/83
[2021-06-19] MEDS: DexAMETHasone SOD PHOS 10MG/1ML VIAL INJ IV SCH (12:24)
[2021-06-19] MEDS: APIXABAN 2.5 MG TAB PO SCH ×2 (12:24→22:14)
[2021-06-19] MEDS: levoFLOXacin 500 MG TAB PO SCH (12:25)
[2021-06-19] MEDS: CHOLECALCIFEROL (VITD3) 2,000 UNIT CAP/TAB PO SCH (12:25)
[2021-06-19] MEDS: DIGOXIN 0.125 MG TAB PO SCH (12:25)
[2021-06-19] MEDS: HYDROcodone-ACET 5/325MG TAB PO PRN (12:38)
[2021-06-19 13:00] VITALS: BP 126/72
[2021-06-19] MEDS: METOPROLOL TARTRATE 50 MG TAB PO SCH ×2 (13:11→22:14)
[2021-06-19] MEDS: traMADol HCL 50 MG TAB PO PRN (16:02)
[2021-06-19 17:00] VITALS: BP 125/67
[2021-06-19 22:00] VITALS: BP 131/61
[2021-06-20] MEDS: ALBUTEROL SULF HFA 90MCG INH 200DOSE IN SCH ×2 (01:47→21:16)
[2021-06-20 05:20] VITALS: BP 134/73
[2021-06-20] MEDS: FUROSEMIDE 20 MG/2 ML VIAL IV SCH ×2 (06:25→17:57)
[2021-06-20 08:15] VITALS: BP 117/54
[2021-06-20 09:00] VITALS: BP 117/54
[2021-06-20] MEDS: DexAMETHasone SOD PHOS 10MG/1ML VIAL INJ IV SCH (10:15)
[2021-06-20] MEDS: DIGOXIN 0.125 MG TAB PO SCH (10:16)
[2021-06-20] MEDS: APIXABAN 2.5 MG TAB PO SCH ×2 (10:16→23:06)
[2021-06-20] MEDS: METOPROLOL TARTRATE 50 MG TAB PO SCH ×2 (10:17→23:07)
[2021-06-20] MEDS: CHOLECALCIFEROL (VITD3) 2,000 UNIT CAP/TAB PO SCH (10:17)
[2021-06-20] MEDS: HYDROcodone-ACET 5/325MG TAB PO PRN (10:25)
[2021-06-20] MEDS: BUDESONIDE (INHALATION) 0.5 MG/2 ML NEB NEB SCH ×2 (10:28→21:16)
[2021-06-20] MEDS: levoFLOXacin 500 MG TAB PO SCH (10:47)
[2021-06-20 13:00] VITALS: BP 112/80
[2021-06-20 17:00] VITALS: BP 153/95
[2021-06-20 22:00] VITALS: BP 125/90
[2021-06-21 05:00] VITALS: BP 144/94
[2021-06-21 05:45] LABS: Basophils # (auto) 0 10 ^3/uL (0-0.2); Basophils % (auto) 0.3 % (0.0-2.0); Eosinophils # (auto) 0 10 ^3/uL (0-0.8); Hemoglobin 15.1 g/dL (13.5-17.5); Lymphocytes # (auto) 0.7 10 ^3/uL (0.4-5.4); Lymphocytes % (auto) 5.9 % (10.0-50.0); Mean Corpuscular Hemoglobin 30.1 pg (28.0-32.0); Mean Corpuscular Hgb Conc. 34.3 g/dL (32.0-36.0); Mean Corpuscular Volume 87.6 fL (80.0-100.0); Monocytes # (auto) 0.9 10 ^3/uL (0-1.3); Neutrophils # (auto) 9.8 10 ^3/uL (1.6-8.6); Neutrophils % (auto) 85.8 % (37.0-80.0); Red Blood Cells 5.03 10^6/uL (4.5-5.90); Red Cell Distribution Width 15.6 % (11.8-14.3); White Blood Cell 11.4 10^3/uL (4.4-10.8)
[2021-06-21 05:55] LABS: Potassium 3.9 mmol/L (3.5-5.1)
[2021-06-21] MEDS: FUROSEMIDE 20 MG/2 ML VIAL IV SCH (06:02)
[2021-06-21 06:03] LABS: BUN/Creatinine Ratio 31.8; CRP High Sensitivity 0.66 mg/dL (< 0.3); Calcium 8.8 mg/dL (8.5-10.1)
[2021-06-21 06:29] LABS: Albumin 2.2 g/dL (3.4-5.0); Bilirubin, Total 1.1 mg/dL (0.2-1.0); Total Protein 6.8 g/dL (6.4-8.2)
[2021-06-21] MEDS: BUDESONIDE (INHALATION) 0.5 MG/2 ML NEB NEB SCH ×2 (06:56→20:33)
[2021-06-21] MEDS: ALBUTEROL SULF HFA 90MCG INH 200DOSE IN SCH ×3 (06:56→20:33)
[2021-06-21 09:00] VITALS: BP 140/66
[2021-06-21] MEDS: DexAMETHasone SOD PHOS 10MG/1ML VIAL INJ IV SCH (10:37)
[2021-06-21] MEDS: APIXABAN 2.5 MG TAB PO SCH ×2 (10:38→22:44)
[2021-06-21] MEDS: levoFLOXacin 500 MG TAB PO SCH (10:38)
[2021-06-21] MEDS: CHOLECALCIFEROL (VITD3) 2,000 UNIT CAP/TAB PO SCH (10:39)
[2021-06-21] MEDS: METOPROLOL TARTRATE 50 MG TAB PO SCH ×2 (10:52→22:50)
[2021-06-21 13:00] VITALS: BP 110/68
[2021-06-21] MEDS: FUROSEMIDE 40 MG/4 ML VIAL IV SCH (18:34)
[2021-06-21 22:00] VITALS: BP_SYST 122; BP_SYST 127; BP_SYST 142; BP_DIAS 55; BP_DIAS 85; BP_DIAS 87
[2021-06-22 05:00] VITALS: BP 129/73
[2021-06-22] MEDS: ALBUTEROL SULF HFA 90MCG INH 200DOSE IN SCH ×3 (06:00→20:13)
[2021-06-22] MEDS: FUROSEMIDE 40 MG/4 ML VIAL IV SCH ×2 (06:07→18:24)
[2021-06-22 06:29] VITALS: BP 129/73
[2021-06-22 08:54] VITALS: BP 119/77
[2021-06-22] MEDS ORDERED: ALBUTEROL SULF HFA 90MCG INH 200DOSE IN PRN (09:30)
[2021-06-22] MEDS: DexAMETHasone SOD PHOS 10MG/1ML VIAL INJ IV SCH (09:58)
[2021-06-22] MEDS: APIXABAN 2.5 MG TAB PO SCH ×2 (09:59→22:05)
[2021-06-22] MEDS: levoFLOXacin 500 MG TAB PO SCH (09:59)
[2021-06-22] MEDS: CHOLECALCIFEROL (VITD3) 2,000 UNIT CAP/TAB PO SCH (09:59)
[2021-06-22] MEDS: BUDESONIDE (INHALATION) 0.5 MG/2 ML NEB NEB SCH ×2 (10:00→21:47)
[2021-06-22] MEDS: METOPROLOL TARTRATE 50 MG TAB PO SCH ×2 (10:00→22:00)
[2021-06-22 12:12] LABS: Basophils # (auto) 0 10 ^3/uL (0-0.2); Basophils % (auto) 0.1 % (0.0-2.0); Eosinophils # (auto) 0 10 ^3/uL (0-0.8); Eosinophils % (auto) 0.1 % (0.0-7.0); Hematocrit 46.7 % (41.0-53.0); Hemoglobin 15.5 g/dL (13.5-17.5); Lymphocytes # (auto) 0.8 10 ^3/uL (0.4-5.4); Lymphocytes % (auto) 6.3 % (10.0-50.0); Mean Corpuscular Hgb Conc. 33.2 g/dL (32.0-36.0); Mean Corpuscular Volume 93.4 fL (80.0-100.0); Monocytes # (auto) 1.1 10 ^3/uL (0-1.3); Monocytes % (auto) 8.9 % (0.0-12.0); Neutrophils # (auto) 10.7 10 ^3/uL (1.6-8.6); Neutrophils % (auto) 84.6 % (37.0-80.0); Nucleated Red Blood Cells % 0.1 %; Red Cell Distribution Width 16.3 % (11.8-14.3); White Blood Cell 12.6 10^3/uL (4.4-10.8)
[2021-06-22 12:27] LABS: Potassium 3.8 mmol/L (3.5-5.1)
[2021-06-22 12:30] LABS: BUN/Creatinine Ratio 30.4
[2021-06-22 12:53] VITALS: BP 120/68
[2021-06-22] MEDS ORDERED: SODIUM CHLORIDE 0.9% 1,000 ML IV SCH (13:00)
[2021-06-22] MEDS ORDERED: ALBUMIN 25% 100 ML IV ONE (13:30)
[2021-06-22] MEDS: ALLOPURINOL 300 MG TAB PO SCH (15:45)
[2021-06-22 17:00] VITALS: BP 111/63
[2021-06-22] MEDS: TAMSULOSIN HYDROCHLORIDE 0.4 MG CAP PO SCH (18:23)
[2021-06-22] MEDS: QUEtiapine FUMARATE 25 MG TAB PO SCH (18:24)
[2021-06-22 22:00] VITALS: BP 99/66
[2021-06-22] MEDS: ATORVASTATIN 20 MG TAB PO SCH (22:05)
[2021-06-22] MEDS: POTASSIUM CHL 20 Meq TABLET PO SCH (22:09)
[2021-06-23 01:24] VITALS: BP 99/66
[2021-06-23 05:00] VITALS: BP 122/66
[2021-06-23] MEDS: FUROSEMIDE 40 MG/4 ML VIAL IV SCH ×2 (05:50→18:01)
[2021-06-23 05:56] LABS: Basophils # (auto) 0 10 ^3/uL (0-0.2); Basophils % (auto) 0.2 % (0.0-2.0); Eosinophils # (auto) 0 10 ^3/uL (0-0.8); Hematocrit 44.4 % (41.0-53.0); Hemoglobin 15.4 g/dL (13.5-17.5); Lymphocytes # (auto) 0.6 10 ^3/uL (0.4-5.4); Lymphocytes % (auto) 6.5 % (10.0-50.0); Mean Corpuscular Hemoglobin 30.7 pg (28.0-32.0); Mean Corpuscular Hgb Conc. 34.6 g/dL (32.0-36.0); Mean Corpuscular Volume 88.5 fL (80.0-100.0); Monocytes # (auto) 0.7 10 ^3/uL (0-1.3); Monocytes % (auto) 7.7 % (0.0-12.0); Neutrophils # (auto) 7.6 10 ^3/uL (1.6-8.6); Neutrophils % (auto) 85.6 % (37.0-80.0); Nucleated Red Blood Cells % 0.1 %; Red Blood Cells 5.01 10^6/uL (4.5-5.90); Red Cell Distribution Width 15.9 % (11.8-14.3); White Blood Cell 8.9 10^3/uL (4.4-10.8)
[2021-06-23 06:20] LABS: BUN/Creatinine Ratio 34.7; Calcium 8.8 mg/dL (8.5-10.1); Potassium 4.2 mmol/L (3.5-5.1)
[2021-06-23] MEDS: ALBUTEROL SULF HFA 90MCG INH 200DOSE IN SCH ×2 (06:47)
[2021-06-23] MEDS: DexAMETHasone SOD PHOS 10MG/1ML VIAL INJ IV SCH (08:46)
[2021-06-23] MEDS: APIXABAN 2.5 MG TAB PO SCH ×2 (08:46→21:39)
[2021-06-23] MEDS: levoFLOXacin 500 MG TAB PO SCH (08:47)
[2021-06-23] MEDS: CHOLECALCIFEROL (VITD3) 2,000 UNIT CAP/TAB PO SCH (08:47)
[2021-06-23] MEDS: ALLOPURINOL 300 MG TAB PO SCH (08:48)
[2021-06-23 09:00] VITALS: BP 91/73
[2021-06-23] MEDS: POTASSIUM CHL 20 Meq TABLET PO SCH ×2 (09:08→21:39)
[2021-06-23] MEDS: METOPROLOL TARTRATE 50 MG TAB PO SCH ×3 (09:09→21:50)
[2021-06-23] MEDS: traMADol HCL 50 MG TAB PO PRN (13:23)
[2021-06-23 17:02] VITALS: BP 135/73
[2021-06-23] MEDS: TAMSULOSIN HYDROCHLORIDE 0.4 MG CAP PO SCH (18:01)
[2021-06-23] MEDS: QUEtiapine FUMARATE 25 MG TAB PO SCH (18:01)
[2021-06-23] MEDS: ATORVASTATIN 20 MG TAB PO SCH (21:39)
[2021-06-23 22:19] VITALS: BP 138/88
[2021-06-23] MEDS: BUDESONIDE (INHALATION) 0.5 MG/2 ML NEB NEB SCH (22:50)
[2021-06-24 05:17] VITALS: BP 107/67
[2021-06-24] MEDS: FUROSEMIDE 40 MG/4 ML VIAL IV SCH (05:40)
[2021-06-24 06:05] LABS: Basophils # (auto) 0 10 ^3/uL (0-0.2); Basophils % (auto) 0.2 % (0.0-2.0); Eosinophils # (auto) 0 10 ^3/uL (0-0.8); Eosinophils % (auto) 0.1 % (0.0-7.0); Hemoglobin 14.7 g/dL (13.5-17.5); Lymphocytes # (auto) 0.5 10 ^3/uL (0.4-5.4); Lymphocytes % (auto) 5.4 % (10.0-50.0); Mean Corpuscular Hemoglobin 30.3 pg (28.0-32.0); Mean Corpuscular Hgb Conc. 33.4 g/dL (32.0-36.0); Mean Corpuscular Volume 90.7 fL (80.0-100.0); Monocytes # (auto) 0.6 10 ^3/uL (0-1.3); Monocytes % (auto) 6.6 % (0.0-12.0); Neutrophils # (auto) 8.4 10 ^3/uL (1.6-8.6); Neutrophils % (auto) 87.7 % (37.0-80.0); Red Blood Cells 4.85 10^6/uL (4.5-5.90); Red Cell Distribution Width 15.9 % (11.8-14.3); White Blood Cell 9.6 10^3/uL (4.4-10.8)
[2021-06-24 06:26] LABS: BUN/Creatinine Ratio 34.7; Potassium 4.4 mmol/L (3.5-5.1)
[2021-06-24] MEDS: ALBUTEROL SULF HFA 90MCG INH 200DOSE IN PRN ×2 (07:03→19:26)
[2021-06-24] MEDS: BUDESONIDE (INHALATION) 0.5 MG/2 ML NEB NEB SCH ×2 (07:05→19:26)
[2021-06-24 08:53] VITALS: BP 107/79
[2021-06-24] MEDS: POTASSIUM CHL 20 Meq TABLET PO SCH (09:17)
[2021-06-24] MEDS: levoFLOXacin 500 MG TAB PO SCH (09:27)
[2021-06-24] MEDS: APIXABAN 2.5 MG TAB PO SCH (09:27)
[2021-06-24] MEDS: DexAMETHasone SOD PHOS 10MG/1ML VIAL INJ IV SCH (09:27)
[2021-06-24] MEDS: METOPROLOL TARTRATE 50 MG TAB PO SCH (09:28)
[2021-06-24] MEDS: CHOLECALCIFEROL (VITD3) 2,000 UNIT CAP/TAB PO SCH (09:29)
[2021-06-24] MEDS: ALLOPURINOL 300 MG TAB PO SCH (09:29)
[2021-06-24] MEDS: traMADol HCL 50 MG TAB PO PRN (09:30)
[2021-06-24] MEDS ORDERED: SODIUM CHLORIDE 0.9% 500 ML IV ONE (13:30)
[2021-06-24] MEDS ORDERED: MET50T PO (13:39)
[2021-06-24] MEDS ORDERED: APIX5TAB PO (13:39)
[2021-06-24 17:00] VITALS: BP 124/76
[2021-06-24 17:32] VITALS: BP 122/66
[2021-06-24] MEDS: TAMSULOSIN HYDROCHLORIDE 0.4 MG CAP PO SCH (17:50)
[2021-06-24] MEDS: QUEtiapine FUMARATE 25 MG TAB PO SCH (17:50)
== END 2021-06-24 19:53 | disposition hospice, home (50) | DRG 871 ==
LOC: ER 10:42 → EDBD 10:42 → OVERFLOW 15:06 → TELE-EAST 06-07 04:49
PROVIDERS: ADMIT Internal Medicine; ATTEND Internal Medicine
PROC: 05HF33Z Insertion of Infusion Device into Left Cephalic Vein, Percutaneous Approach (ICD-10-PCS; principal; 2021-06-06)
PROC: XW13325 Transfusion of Convalescent Plasma (Nonautologous) into Peripheral Vein, Percutaneous Approach, New Technology Group 5 (ICD-10-PCS; 2021-06-06)
PROC: B54NZZA Ultrasonography of Left Upper Extremity Veins, Guidance (ICD-10-PCS; 2021-06-06)
PROC: XW033E5 Introduction of Remdesivir Anti-infective into Peripheral Vein, Percutaneous Approach, New Technology Group 5 (ICD-10-PCS; 2021-06-06)
DX: A41.89 Other specified sepsis (principal); U07.1 COVID-19; J12.82 Pneumonia due to coronavirus disease 2019; I50.33 Acute on chronic diastolic (congestive) heart failure; N17.0 Acute kidney failure with tubular necrosis; E43 Unspecified severe protein-calorie malnutrition; G93.41 Metabolic encephalopathy; J96.21 Acute and chronic respiratory failure with hypoxia; J44.1 Chronic obstructive pulmonary disease with (acute) exacerbation; J98.11 Atelectasis; I48.20 Chronic atrial fibrillation, unspecified; J44.0 Chronic obstructive pulmonary disease with (acute) lower respiratory infection; D68.69 Other thrombophilia; G93.1 Anoxic brain damage, not elsewhere classified; K92.2 Gastrointestinal hemorrhage, unspecified; E88.09 Other disorders of plasma-protein metabolism, not elsewhere classified; E66.01 Morbid (severe) obesity due to excess calories; E87.6 Hypokalemia; N40.0 Benign prostatic hyperplasia without lower urinary tract symptoms; K64.9 Unspecified hemorrhoids; N18.30 Chronic kidney disease, stage 3 unspecified; M10.9 Gout, unspecified; E78.5 Hyperlipidemia, unspecified; R73.03 Prediabetes; Z79.01 Long term (current) use of anticoagulants; Z91.19 Patient's noncompliance with other medical treatment and regimen; Z68.30 Body mass index [BMI] 30.0-30.9, adult; Z86.73 Personal history of transient ischemic attack (TIA), and cerebral infarction without residual deficits
CPT/HCPCS: 36415; 36430; 36600; 71045; 71250; 76775; 80048; 80053; 80061; 80162; 81001; 82270; 82378; 82550; 82728; 82805; 83036; 83605; 83615; 83735; 83880; 84443; 84484; 85007; 85014; 85018; 85025; 85027; 85379; 85610; 85730; 86141; 86704; 86706; 86708; 86803; 86850; 86900; 86901; 87040; 87077; 87081; 87186; 87340; 87426; 93005; 93306; 93970; 93971; 94640; 96365; 96367; 96375; 97110; 97116; 97163; 97530; 99291; G0378; J0690; J0696; J1100; J7060; P9047